=== PATIENT | male | born 1960 | race Caucasian/White ===

== ENCOUNTER 2022-11-21 22:37 | Inpatient (IN) ==
[2022-11-21] MEDS ORDERED: ONDANSETRON INJ 2 MG/ML 2 ML VIAL IV STA (22:48)
[2022-11-21] MEDS ORDERED: FAMOTIDINE 20MG IV PUSH 20 MG/5 ML SYR IV STA (22:48)
[2022-11-21] MEDS ORDERED: EPINEPHrine INJ 1 MG/ML AMP IM STA (22:48)
[2022-11-21] MEDS ORDERED: SODIUM CHLORIDE 0.9% 1,000 ML IV ONE (22:48)
[2022-11-21] MEDS ORDERED: methylPREDNISolone 125 MG/2 ML VIAL IV STA (22:50)
[2022-11-21] MEDS ORDERED: TRANEXAMIC ACID / 0.7% NACL 1,000 MG/100 ML BAG IV STA (22:52)
[2022-11-21] MEDS ORDERED: SODIUM CHLORIDE 0.9% 250 ML IV PRN (22:52)
[2022-11-21 23:10] LABS: Basophils # (auto) 0.06 K/uL (0.00-0.20); Basophils % (auto) 0.8 %; Eosinophils # (auto) 0.16 K/uL (0.00-0.50); Eosinophils % (auto) 2.1 %; Hematocrit (blood only) 46.8 % (42.0-52.0); Hemoglobin 16.2 g/dl (14.0-18.0); Immature Granulocytes # (auto) 0.02 K/uL (0.01-0.20); Immature Granulocytes % (auto) 0.3 %; Lymphocytes # (auto) 2.23 K/uL (1.20-3.40); Lymphocytes % (auto) 29.4 %; Mean Corpuscular Hemoglobin 32.1 pg (25.0-34.0); Mean Corpuscular Hgb Conc 34.6 g/dL (32.0-36.0); Mean Corpuscular Volume 92.7 fL (80.0-100.0); Mean Platelet Volume 8.9 fL (9.4-12.4); Monocytes # (auto) 0.53 K/uL (0.11-0.59); Neutrophils # (auto) 4.59 K/uL (1.40-6.50); Neutrophils % (auto) 60.4 %; Platelet Count 320 K/uL (130-400); RDW Coefficient of Variation 12.8 % (11.5-14.5); RDW Standard Deviation 43.8 fL (36.4-46.3); Red Blood Count 5.05 M/uL (4.70-6.10); White Blood Count 7.59 K/ul (4.8-10.8)
[2022-11-21 23:24] LABS: BUN Creatinine Ratio 18.5 (10-20); Creatinine Clr Calc Pharmacy 115.7 ml/min; Est GFR (Non-African American) 96.6 ml/min; Potassium 3.6 mmol/L (3.5-5.1)
[2022-11-21 23:40] LABS: Partial Thromboplastin Ratio 0.9; Partial Thromboplastin Time 26.5 Seconds (21.0-31.0); Prothrombin Time 10.6 Seconds (9.0-12.0)
--- NOTE | 2022-11-21 23:45 | Communication Note ---
Date of Service: November 21, 2022 Anesthesia Note: Called by ER staff physician to evaluate patient in ER who appeared to be having angioedema of the tongue/neck. Patient had several previous incidents of swelling of his tongue and neck but had always been unilateral in the past. Remote history of lisinopril use but currently on ARB. Patient is from out of town and is up for [employer] football game. He vaped today and noticed swelling of his neck and tongue along with voice changes. He took several Benadryl but symptoms did not improve so came to the ER. Physical exam showed a swollen tongue although was not protruding from his mouth. He was easily able to swallow his secretions and was sitting upright and conversant with me. He had definite voice changes and had swelling of his submandibular region b/l. MP 4, 3 with phonation. No wheezing heard on auscultation. Denied shortness of breath. SpO2 mid 90's on RA. Two IV's were started on patient and he received epinephrine, methylprednisolone, zofran, pepcid and TXA while I was with the patient. ER physician consented patient for FFP. ICU provider and I evaluated patient together. In my time with the patient, he stated he was feeling better as his tongue was less swollen and his voice quality improved. I did speak at length with patient's per his request to update her on his situation. At this point, patient is to be admitted to ICU and will be closely monitored overnight. FFP will also be given. Given that his tongue swelling is improving as is his voice quality combined with the fact that he does not have any SOB or wheezing, I do feel he does not need to be intubated at this time. If at any point the swelling progresses or he has any other symptoms such as dysphagia, SOB, worsening voice quality, etc, then I would have a very low threshold to intubate this patient using an awake technique with fiberoptic/glidescope. Patient is in agreement with plan as is the ICU provider. All questions were answered.
--- NOTE | 2022-11-22 00:05 | History & Physical Report ---
Date of Service November 21, 2022 Assessment & Plan (1) Angioedema: Plan: 62-year-old male with past medical significant for diabetes, hyperlipidemia, hypertension, bipolar disorder, history of angioedema in the past presents with swelling of the tongue and the throat. Angioedema After vaping History of angioedema in the past and he was stopped lisinopril Currently on losartan which will be held Received IM epinephrine, IV Solu-Medrol, IV Pepcid and getting TXA Seems improving Hemodynamically stable Monitoring in the ICU Hypertension We will hold Cozaar for now Monitor the blood pressure History of bipolar Depression anxiety Paxil, buspirone Tegretol and Valium Hyperlipidemia On Vytorin diabetes Diabetes We will hold home p.o. medications Insulin sliding scale We will follow blood sugars and HbA1c levels BPH Flomax DVT prophylax SCDs for now Disposition ICU Full code History of Present Illness Chief Complaint: Angioedema Primary Care Provider: NO PCP 62-year-old male with past medical significant for diabetes, hyperlipidemia, hypertension, bipolar disorder, history of angioedema in the past presents with swelling of the tongue and the throat. Patient is from [place] came to [place] for football match. He was offered lemon flavored nicotine vaping pipe. After he vapd went to his hotel room where he noticed swelling of his tongue and also with throat initially one side and soon both sides he called his friend took Benadryl and came to the ER. Received IV Solu-Medrol, IV Pepcid, IM epinephrine and TXA in the ER. Currently FFP is ordered. Says initially was just mumbling now able to speak, says seems to getting better. Denies any shortness of breath. No chest pain. No nausea vomiting. No headaches. No blurred visions. No runny nose or sore throat. No cough. No fevers. No abdominal pain. Normal bowel and bladder movements. Says he had similar epis ode 5 years ago which lasted for about 4 hours. At that time lisinopril was stopped and currently on losartan . Past medical history as mentioned above Past surgical history. Right knee meniscal repair Social history smokes occasional cannabis. Alcohol occasionally. Family history. Father and mother had diabetes, hypertension and hyperlipidemia. Mother had CHF. . Allergies Allergy/AdvReac Type Severity Reaction Status Date / Time lisinopril Allergy Severe Verified 11/22/22 00:26 Home Medications Medication Instructions Recorded Confirmed Type Glucotrol 15 mg PO ACHS 11/21/22 11/22/22 History Singulair 10 mg PO BID 11/21/22 11/21/22 History aspirin 325 mg tablet,delayed 325 mg PO DAILY 11/21/22 11/21/22 History release (Ecotrin) buspirone 30 mg tablet 30 mg PO BID 11/21/22 11/21/22 History carbamazepine 400 mg 400 mg PO BID 11/21/22 11/22/22 History tablet,extended release,12 hr (Tegretol XR) cetirizine 10 mg capsule (Zyrtec) 10 mg PO HS 11/21/22 11/21/22 History cholecalciferol (vitamin D3) 125 125 mcg PO DAILY 11/21/22 11/21/22 History mcg (5,000 unit) tablet (Vitamin D3) diazepam 5 mg tablet 10 mg PO HS PRN Anxiety 11/21/22 11/21/22 History ezetimibe-simvastatin 1,040 mg PO DAILY 11/21/22 11/21/22 History losartan 50 mg tablet (Cozaar) 50 mg PO DAILY 11/21/22 11/21/22 History paroxetine HCl 40 mg tablet (Paxil) 40 mg PO HS 11/21/22 11/21/22 History tamsulosin 0.4 mg capsule 0.4 mg PO HS 11/21/22 11/22/22 History Past Med/Surg History Medical History Anxiety and depression BPH (benign prostatic hyperplasia) Diabetes mellitus, type II HTN (hypertension) Mood disorder Family History Other Family history non-contributory Social History Smoking Status: Former smoker Tobacco Type: Cigarettes Second Hand Exposure: No; Do You Dip or Chew Tobacco: No; Tobacco Cessation Education Requested by Patient: No Hx Alcohol Use: Yes Alcohol type: beer Hx Substance Use: Yes Last Used Substance: Unknown Substance Use Type Other:: Pt smokes Marijuana for anxiety (legalized [place]) Preferred Language: Danish 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 Neck- supple, no JVD. Lungs- clear to auscultation no wheezing or crackles. Heart- regular rhythm; no murmur, no gallop. Abdomen- normal bowel sounds, soft, nontender, no distension Extremities- no pretibial edema, no erythema seen. Neuro- alert, oriented x 3; PERRL, no facial palsy; no dysarthria; non focal. Skin- warm & dry Results & Data Results & Data Vital Signs (Past 12 Hours) Vital Signs Temp Pulse Resp BP Pulse Ox O2 Del Method 11/21/22 23:31 83 22 153/87 H 95 Room Air 11/21/22 23:20 87 21 169/110 H 96 Room Air 11/21/22 23:15 88 23 97 Room Air 11/21/22 23:00 88 20 138/108 H 97 Room Air 11/21/22 23:12 98 Room Air 11/21/22 22:53 87 11/21/22 22:38 35.8 C L 91 H 20 166/91 H 95 Room Air Diagnostic Findings Laboratory Results WBC 7.59 K/ul (4.8-10.8) 11/21/22 22:47 RBC 5.05 M/uL (4.70-6.10) 11/21/22 22:47 Hgb 16.2 g/dl (14.0-18.0) 11/21/22 22:47 Hct 46.8 % (42.0-52.0) 11/21/22 22:47 MCV 92.7 fL (80.0-100.0) 11/21/22 22:47 MCH 32.1 pg (25.0-34.0) 11/21/22 22:47 MCHC 34.6 g/dL (32.0-36.0) 11/21/22 22:47 RDW Std Deviation 43.8 fL (36.4-46.3) 11/21/22 22:47 RDW Coeff of Raghu 12.8 % (11.5-14.5) 11/21/22 22:47 Plt Count 320 K/uL (130-400) 11/21/22 22:47 MPV 8.9 fL (9.4-12.4) L 11/21/22 22:47 Immature Gran % (Auto) 0.3 % 11/21/22 22:47 Neut % (Auto) 60.4 % 11/21/22 22:47 Lymph % (Auto) 29.4 % 11/21/22 22:47 Citrus % (Auto) 7.0 % 11/21/22 22:47 Eos % (Auto) 2.1 % 11/21/22 22:47 Baso % (Auto) 0.8 % 11/21/22 22:47 Neut # (Auto) 4.59 K/uL (1.40-6.50) 11/21/22 22:47 Lymph # (Auto) 2.23 K/uL (1.20-3.40) 11/21/22 22:47 Citrus # (Auto) 0.53 K/uL (0.11-0.59) 11/21/22 22:47 Eos # (Auto) 0.16 K/uL (0.00-0.50) 11/21/22 22:47 Baso # (Auto) 0.06 K/uL (0.00-0.20) 11/21/22 22:47 Immature Gran # (Auto) 0.02 K/uL (0.01-0.20) 11/21/22 22:47 PT 10.6 Seconds (9.0-12.0) 11/21/22 22:47 INR 1.0 (0.9-1.1) 11/21/22 22:47 APTT 26.5 Seconds (21.0-31.0) 11/21/22 22:47 PTT Ratio 0.9 11/21/22 22:47 Sodium 136 mmol/L (136-145) 11/21/22 22:47 Potassium 3.6 mmol/L (3.5-5.1) 11/21/22 22:47 Chloride 99 mmol/L (98-107) 11/21/22 22:47 Carbon Dioxide 27 mmol/L (21-32) 11/21/22 22:47 Anion Gap 10 (3-11) 11/21/22 22:47 BUN 15 mg/dl (6-23) 11/21/22 22:47 Creatinine 0.81 mg/dl (0.6-1.4) 11/21/22 22:47 Est Cr Clr Drug Dosing 115.7 ml/min 11/21/22 22:47 Est GFR ( Amer) 112.0 ml/min 11/21/22 22:47 Est GFR (Non-Af Amer) 96.6 ml/min 11/21/22 22:47 BUN/Creatinine Ratio 18.5 (10-20) 11/21/22 22:47 Glucose 170 mg/dl (70-99(Fasting)) H 11/21/22 22:47 Calcium 10.0 mg/dl (8.6-10.3) 11/21/22 22:47 Blood Type B Positive 11/21/22 22:57 Antibody Screen NEGATIVE 11/21/22 22:57 Code Status & VTE Plan VTE Prophylaxis Plan VTE Prophylaxis will be ordered: Yes
--- NOTE | 2022-11-22 00:06 | Critical Care Consultation ---
Date of Consultation November 22, 2022 Assessment & Plan (1) Angioedema: (2) HTN (hypertension): (3) Anxiety and depression: (4) Mood disorder: (5) BPH (benign prostatic hyperplasia): (6) Diabetes mellitus, type II: Plan Reason Critically Ill: 62 YOM presents for airway monitoring following episode of angioedema. Currently improving Neuro - HX mood disorder with anxiety and depression CAM ICU: Negative - Continue BuSpar, Tegretol, Paxil Cardiac - HTN - Hold Losartan- follow up with PCP - recommend discontinuation - Continue Zetia/simvastatin - Follow hemodynamic response Respiratory - Angioedema, Asthma - Angioedema in the setting of possibly vape induced however with a history of such secondary to lisinopril and currently on ARB - Symptoms are bilateral at this time, involving face /tongue/submandibular/cheeks- onset appears to have occurred within hour of vaping - is without skin involvement and is without wheeze or stridor - no other body system involved - Currently appears to be responding well to antihistamine mediated treatment - TXA given and pending arrival of FFP- will give 2 units FFP- repeat x1 unit if needed - Appreciate anesthesia evaluation and consultation- if airway becomes compromised anticipate awake fiberoptic management - Follow symptomatology- if rebound can re-dose FFP, consider epinephrine IM or infusion at 5mcg/kg/min and titrate to effect - will hold on labs as patient lives out of town - Albuterol for Asthma- nebulizers if not controlled with HFA- continue cetirizine/Singulair GI - No acute needs RENAL/LYTES - No acute needs - Hx BPH - No acute needs continue tamsulosin ENDO - HX DMII - ICU hyperglycemic protocol HEME - No acute needs ID - No concern for infectious etiology at this time LINES/IV ACCESS - PIV x2 Continue use of these lines DVT PROPHYLAXIS - SCDS, ambulation DISPO: ICU overnight and likely able to discharge in morning if no re-bound or worsening of the above I have personally spent 45 minutes of critical care time in the direct management of this patient. This is a life/limb threatening event. This includes time spent evaluating patient, direct bedside care, chart review, placing orders, interpretation of diagnostic studies, discussion with consultants, patient, and family members, as well as other required patient management activities. This time is exclusive of all separately billable procedures, and separate from and in addition to any other critical care service time. Thank you for allowing us to participate in the care of this patient. Please refer to my attending physician's documentation for any further recommendations. Supervising Physician Co-Signing Physician Notes I have personally evaluated and examined this patient. I agree with assessment and plan of Og FONTENOT. Evaluated at 1230, patient able to take p.o., mild swelling in the submandibular area patient reports significantly improved desires to go home. 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 Lives in [place] has traveling partner with him. Stable for discharge from my standpoint History of Present Illness Reason for Consultation: Angioedema Requesting Physician: Hilton Paniagua MD Attending Physician: Hilton Paniagua MD History of Present Illness 62 YOM that is from [place] with no medical records available for review. The patient is in the area today for the football game. Patient came to the EMD today for swelling of face and tongue that started around 1800 this evening. He reports that he did vape today at 1700 which he normally does not do. He took Benadryl 25mg Benadryl x4 prior to coming to the EMD. In the EMD the patient was noted with swollen tongue, eyes/cheeks, and submandibular region. He was without rash or hives as well as without stridor or wheeze. He was with thick garbled speech and with reported hoarse voice. He was managing his secretions. Anesthesia was at bedside as well evaluating airway. Patient reports that he has a history of angioedema that has occurred 3-4 other times and has always responded well to benadryl, steroid and H2 tejas. Normally his symptoms are unilateral and was noted previously while on Lisinopril. He is currently on Losartan. He does not remember ever having c1 inhibitor, c4 level or c1q esterase levels drawn and was told it was just related to his lisinopril. Within the hour following TXA, Epinepherin, Steroids, and Famotidine his symptoms have improved to his tongue, eyes, mouth, voice, and submandibular region and now is more localized to LEFT>RIGHT- which he states is normally just the left side. Patient will be admitted to ICU for continuation of monitoring and therapy. CODE: FULL Allergies Allergy/AdvReac Type Severity Reaction Status Date / Time lisinopril Allergy Severe Verified 11/22/22 00:26 Home Medications Medication Instructions Recorded Confirmed Type Glucotrol 15 mg PO ACHS 11/21/22 11/22/22 History Singulair 10 mg PO BID 11/21/22 11/21/22 History aspirin 325 mg tablet,delayed 325 mg PO DAILY 11/21/22 11/21/22 History release (Ecotrin) buspirone 30 mg tablet 30 mg PO BID 11/21/22 11/21/22 History carbamazepine 400 mg 400 mg PO BID 11/21/22 11/22/22 History tablet,extended release,12 hr (Tegretol XR) cetirizine 10 mg capsule (Zyrtec) 10 mg PO HS 11/21/22 11/21/22 History cholecalciferol (vitamin D3) 125 125 mcg PO DAILY 11/21/22 11/21/22 History mcg (5,000 unit) tablet (Vitamin D3) diazepam 5 mg tablet 10 mg PO HS PRN Anxiety 11/21/22 11/21/22 History ezetimibe-simvastatin 1,040 mg PO DAILY 11/21/22 11/21/22 History losartan 50 mg tablet (Cozaar) 50 mg PO DAILY 11/21/22 11/21/22 History paroxetine HCl 40 mg tablet (Paxil) 40 mg PO HS 11/21/22 11/21/22 History tamsulosin 0.4 mg capsule 0.4 mg PO HS 11/21/22 11/22/22 History cetirizine 10 mg tablet 10 mg PO BID #14 tabs 11/22/22 Rx nifedipine 60 mg tablet,extended 60 mg PO DAILY #30 tabs 11/22/22 Rx release prednisone 10 mg tablet See Taper PO DIRECTED #14 tabs 11/22/22 Rx Patient History Medical History Anxiety and depression BPH (benign prostatic hyperplasia) Diabetes mellitus, type II HTN (hypertension) Mood disorder Family History Other Family history non-contributory Social History Smoking Status: Former smoker Tobacco Type: Cigarettes Second Hand Exposure: No; Do You Dip or Chew Tobacco: No; Tobacco Cessation Education Requested by Patient: No Hx Alcohol Use: Yes Alcohol type: beer Hx Substance Use: Yes Last Used Substance: Unknown Substance Use Type Other:: Pt smokes Marijuana for anxiety ([place]ized [place]) Preferred Language: Vietnamese 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 Beliefs That Will Affect Care: None Current Living Situation: Spouse Other Information That Helps Us Care for You: No Feels Safe at Home: Yes Safety Concerns: Feels Safe At This Time Assistive Devices: None Review of Systems Review of Systems: REVIEW OF SYSTEMS: Constitutional: No fever, sweats or chills Eyes: (+) swelling of eyes, No diplopia, no worsening or blurred vision ENT: (+) lip swelling, tongue swelling, submandibular swelling, hoarse voice, normal hearing, no trouble swallowing Respiratory: No cough, sputum, dyspnea at rest or on exertion Cardiovascular: No chest pain, tightness or palpitations Abdomen: No pain, nausea, vomiting, diarrhea or constipation Musculoskeletal: No joint pain, calf pain, swelling Neurologic: No weakness, numbness/tingling, or balance problems Psychiatric: (+) anxiety or depression, mood disorder Skin: No rash or itch Physical Exam Physical Exam: PHYSICAL EXAM: General: awake, alert, no apparent distress Head: Normocephalic, atraumatic ENT: PERRLA, EOMI, Mallampati 4, swelling to eyes, cheeks, tongue, submandibular, no pharyngeal exudate, mucous membranes dry Neuro: AAO x 3, speech garbled secondary to tongue size, strength intact bilaterally 5/5, sensation intact and equal all extremities and dermatomes, no pronator drift Chest: equal rise and fall of the chest, no accessory muscle use, no heaves or thrills, Clear to auscultation, on room air, Cardiac: Regular rate and rhythm, telemetry reviewed, skin warm dry, cap refill <3 seconds, peripheral pulses +2 no JVD, no murmur, no JVD, no edema GI: NABS x 4 quadrants, soft, nontender to palpation, no rebound, guarding or tenderness : Spontaneously voiding, no pain, no CVA tenderness, Extremities: Normal inspection, no peripheral edema or erythema, calfs nontender to palpation Psych: Normal mood and affect Skin: no rash or erythema Results & Data Results & Data Vital Signs (Past 12 Hours) Vital Signs Temp Pulse Resp BP Pulse Ox O2 Del Method 11/21/22 23:31 83 22 153/87 H 95 Room Air 11/21/22 23:20 87 21 169/110 H 96 Room Air 11/21/22 23:15 88 23 97 Room Air 11/21/22 23:00 88 20 138/108 H 97 Room Air 11/21/22 23:12 98 Room Air 11/21/22 22:53 87 11/21/22 22:38 35.8 C L 91 H 20 166/91 H 95 Room Air Laboratory Results Abnormal lab results 11/21/22 11/21/22 Range/Units 22:47 22:47 MPV 8.9 L (9.4-12.4) fL Glucose 170 H (70-99(Fasting)) mg/dl Medications Administered Home Medications Glucotrol 15 mg PO ACHS 11/21/22 [History Confirmed 11/22/22] Singulair 10 mg PO BID 11/21/22 [History Confirmed 11/21/22] aspirin 325 mg tablet,delayed release (Ecotrin) 325 mg PO DAILY 11/21/22 [ History Confirmed 11/21/22] buspirone 30 mg tablet 30 mg PO BID 11/21/22 [History Confirmed 11/21/22] carbamazepine 400 mg tablet,extended release,12 hr (Tegretol XR) 400 mg PO BID 11/21/22 [History Confirmed 11/22/22] cetirizine 10 mg capsule (Zyrtec) 10 mg PO HS 11/21/22 [History Confirmed 11/21/22] cholecalciferol (vitamin D3) 125 mcg (5,000 unit) tablet (Vitamin D3) 125 mcg PO DAILY 11/21/22 [History Confirmed 11/21/22] diazepam 5 mg tablet 10 mg PO HS PRN Anxiety 11/21/22 [History Confirmed 11/21/22] ezetimibe-simvastatin 1,040 mg PO DAILY 11/21/22 [History Confirmed 11/21/22] losartan 50 mg tablet (Cozaar) 50 mg PO DAILY 11/21/22 [History Confirmed 11/21/22] paroxetine HCl 40 mg tablet (Paxil) 40 mg PO HS 11/21/22 [History Confirmed 11/21/22] tamsulosin 0.4 mg capsule 0.4 mg PO HS 11/21/22 [History Confirmed 11/22/22] Active Medications Sodium Chloride (Nss) 250 mls @ 15 mls/hr IV .[id number] PRN PRN Reason: For Transfusion Duration Stop: 11/22/22 08:52 Discontinued Medications Epinephrine HCl (Epinephrine Inj 1 Mg/Ml Amp) 0.3 mg IM NOW STA Stop: 11/21/22 22:49 Last Admin: 11/21/22 22:59 Dose: 0.3 mg Documented By: JOSE Sodium Chloride (Nss) 1,000 mls @ 999 mls/hr IV .Q1H1M ONE Stop: 11/21/22 23:48 Last Infusion: 11/22/22 00:00 Dose: 0 mls/hr Documented By: Admin: 11/21/22 22:59 Dose: 999 mls/hr Documented By: JOSE Famotidine (Pepcid 20mg Iv Push) 20 mg in 5 mls @ 2.5 mls/min IV NOW STA Stop: 11/21/22 22:49 Last Admin: 11/21/22 22:59 Dose: 2.5 mls/min Documented By: JOSE Tranexamic Acid (Tranexamic Acid / 0.7% Nacl) 1,000 mg in 100 mls @ 600 mls/hr IV NOW STA Stop: 11/21/22 23:01 Last Infusion: 11/21/22 23:14 Dose: 0 mls/hr Documented By: Admin: 11/21/22 23:03 Dose: 600 mls/hr Documented By: JOSE Methylprednisolone (Methylprednisolone 125 Mg/2 Ml Vial) 125 mg IV NOW STA Stop: 11/21/22 22:51 Last Admin: 11/21/22 22:59 Dose: 125 mg Documented By: JOSE Ondansetron HCl (Ondansetron Inj 2 Mg/Ml 2 Ml Vial) 4 mg IV NOW STA Stop: 11/21/22 22:49 Last Admin: 11/21/22 22:59 Dose: 4 mg Documented By: JOSE ECG Additional Comments: non on file Coding Level of Care Code 55885 CRITICAL CARE 1ST 30-74M Diagnoses Angioedema T78.3XXA HTN (hypertension) I10 Anxiety and depression F41.9; F32.A Mood disorder F39 BPH (benign prostatic hyperplasia) N40.0 Diabetes mellitus, type II E11.9
[2022-11-22] MEDS ORDERED: GLUCOSE 40% GEL 15 GM TUBE PO PRN (00:36)
[2022-11-22] MEDS ORDERED: GLUCOSE 10 TAB/TUBE PO PRN (00:36)
[2022-11-22] MEDS ORDERED: GLUCAGON FOR INJ 1 MG VIAL SQ PRN (00:36)
[2022-11-22] MEDS ORDERED: diphenhydrAMINE 50 MG/ML VIAL IV PRN (00:36)
[2022-11-22] MEDS ORDERED: CETIRIZINE HCL 10 MG TABLET PO SCH (00:36)
[2022-11-22] MEDS ORDERED: diazePAM 5 MG TABLET PO PRN (00:36)
[2022-11-22] MEDS ORDERED: CARBOHYDRATES FOR HYPOGLYCEMIA PO PRN (00:36)
[2022-11-22] MEDS ORDERED: SODIUM CHLORIDE 0.9% 1,000 ML IV SCH (00:36)
[2022-11-22] MEDS ORDERED: DEXTROSE 50% 50 ML SYRINGE IV PRN (00:36)
[2022-11-22] MEDS ORDERED: LACTATED RINGER'S 1,000 ML IV SCH (00:45)
[2022-11-22] MEDS ORDERED: ALBUTEROL 0.083% NEBU SOLN 3 ML VIAL NEB PRN (00:47)
[2022-11-22] MEDS ORDERED: ALBUTEROL HFA 8 GM INHALER INH PRN (00:47)
[2022-11-22] MEDS: INSULIN ASPART PER UNIT CHARGE SC SCH ×3 (01:29→12:49)
--- NOTE | 2022-11-22 02:24 | Emergency Department Note ---
History of Present Illness General Chief complaint: Allergic Reaction Stated complaint: ALLERGIC REACTION Time Seen by Provider: 11/21/22 22:45 History of Present Illness Provider complaint: Tongue swelling Onset (ago): minute(s) 45 Location: mouth Associated symptoms: no shortness of breath 62-year-old male presents emergency department for tongue swelling. Patient reports he "took a hit of his friends vape" at approximately 8:30 PM and then started having swelling of his throat and tongue 45 minutes ago. He states he is having difficulty speaking but no difficulty breathing. He reports no new foods. Patient states that something like this happened to him before and he was taken off of an CHRISTA inhibitor due to it. Patient is visiting from [place]. Patient states he took 4 Benadryl orally prior to arrival. Home Medications Medication Instructions Recorded Confirmed Type Glucotrol 15 mg PO ACHS 11/21/22 11/22/22 History Singulair 10 mg PO BID 11/21/22 11/21/22 History aspirin 325 mg tablet,delayed 325 mg PO DAILY 11/21/22 11/21/22 History release (Ecotrin) buspirone 30 mg tablet 30 mg PO BID 11/21/22 11/21/22 History carbamazepine 400 mg 400 mg PO BID 11/21/22 11/22/22 History tablet,extended release,12 hr (Tegretol XR) cetirizine 10 mg capsule (Zyrtec) 10 mg PO HS 11/21/22 11/21/22 History cholecalciferol (vitamin D3) 125 125 mcg PO DAILY 11/21/22 11/21/22 History mcg (5,000 unit) tablet (Vitamin D3) diazepam 5 mg tablet 10 mg PO HS PRN Anxiety 11/21/22 11/21/22 History ezetimibe-simvastatin 1,040 mg PO DAILY 11/21/22 11/21/22 History losartan 50 mg tablet (Cozaar) 50 mg PO DAILY 11/21/22 11/21/22 History paroxetine HCl 40 mg tablet (Paxil) 40 mg PO HS 11/21/22 11/21/22 History tamsulosin 0.4 mg capsule 0.4 mg PO HS 11/21/22 11/22/22 History Allergies Allergy/AdvReac Type Severity Reaction Status Date / Time lisinopril Allergy Severe Verified 11/22/22 00:26 Past Med/Surg History Medical History Anxiety and depression BPH (benign prostatic hyperplasia) Diabetes mellitus, type II HTN (hypertension) Mood disorder Family History Other Family history non-contributory Social History Smoking Status: Never smoker Preferred Language: Khmer Feels Safe at Home: Yes Physical Exam Vital Signs Vital Signs - 24 hr 11/21/22 22:38 11/21/22 22:53 11/21/22 23:12 Temperature 35.8 C L Temperature Source Temporal Artery Scan Pulse Rate 91 H 87 Pulse Rate from SpO2 Sensor Respiratory Rate 20 Respiratory Effort / Characteristics Grunting Respiratory Depth Normal Blood Pressure 166/91 H Blood Pressure Mean 116 Pulse Oximetry 95 98 Oxygen Delivery Method Room Air Room Air Sepsis Recent Fever Within 48 Hours No Sepsis New/Unexplained Change in Mental Status N/A Sepsis Action Taken by Nursing No Action Required 11/21/22 23:00 11/21/22 23:15 11/21/22 23:20 Temperature Temperature Source Pulse Rate 88 88 87 Pulse Rate from SpO2 Sensor 89 88 88 Respiratory Rate 20 23 21 Respiratory Effort / Characteristics Respiratory Depth Blood Pressure 138/108 H 169/110 H Blood Pressure Mean 118 129 Pulse Oximetry 97 97 96 Oxygen Delivery Method Room Air Room Air Room Air Sepsis Recent Fever Within 48 Hours Sepsis New/Unexplained Change in Mental Status Sepsis Action Taken by Nursing 11/21/22 23:31 11/21/22 23:45 Temperature Temperature Source Pulse Rate 83 89 Pulse Rate from SpO2 Sensor 83 88 Respiratory Rate 22 20 Respiratory Effort / Characteristics Respiratory Depth Blood Pressure 153/87 H Blood Pressure Mean 109 Pulse Oximetry 95 95 Oxygen Delivery Method Room Air Room Air Sepsis Recent Fever Within 48 Hours Sepsis New/Unexplained Change in Mental Status Sepsis Action Taken by Nursing Physical Exam HENT: Exam performed. - Head: Normocephalic and atraumatic. - Right Ear: External ear normal. No mastoid erythema - Left Ear: External ear normal. No mastoid erythema - Mouth/Throat: Swelling of the tongue and uvula. Mild swelling of the lower lip. Appearance is consistent with angioedema. EYES: Conjunctivae and EOM are normal. Pupils are equal, round, and reactive to light. Right eye exhibits no discharge. Left eye exhibits no discharge. No scleral icterus. NECK: Normal range of motion. Mild submental swelling and fullness. CV: Normal rate, regular rhythm, normal heart sounds and intact distal pulses. There is no peripheral edema. Palpable radial pulses bue. PULM/CHEST: Effort normal and breath sounds normal. No respiratory distress. No stridor. He has no wheezes. He has no rales. NEURO: Motor and sensation grossly intact. SKIN: Skin is warm and dry. He is not diaphoretic. PSYCH: He has a normal mood and affect. Behavior is normal. Judgment and thought content normal. Course Course 2245: The patient was evaluated in room C11. A complete history and physical exam was performed Cardiac monitoring: An order was placed for continuous cardiac monitoring. The monitor shows a rate of 80 with sinus rhythm interpreted by me Patient appears to have angioedema clinically. Unsure if it is truly angioedema or allergic reaction. Patient will be moved to the resuscitation bay. Patient ordered epinephrine 0.3 mg IM, Pepcid 20 mg IV, sign Medrol 125 mg IV and normal saline in case it is a true anaphylactic reaction. Higher likelihood for angioedema so patient is also ordered TXA IV as well as 2 units of FFP. Anesthesia will be consulted in the emergency department. 2250: Spoke with anesthesia Dr. Patel and he states he will be down to evaluate the patient. 2256: Anesthesia was at bedside evaluating the patient. 2315: Patient states he feels like his tongue swelling is going down. [facility] 0000: Vital signs stable. Patient states that he feels like his tongue swelling is going down. Objectively his tongue swelling does appear to be going down and there appear to be more ridges visible in his tongue. TXA epinephrine Solu- Medrol Pepcid and IV fluids have been given to the patient. FFP is ordered for the patient. Anesthesia and ICU states that they will observe the patient in the ICU but hold off on intubation at this time as patient is improving. Administered Medications Cetirizine HCl (Cetirizine Hcl 10 Mg Tablet) 10 mg PO HS RONNIE Stop: 12/22/22 00:35 Last Admin: 11/22/22 01:07 Dose: 10 mg Documented By: MATTI Insulin Aspart (Insulin Aspart Per Unit Charge) 0 units SC ACHS RONNIE Stop: 12/22/22 00:35 Last Admin: 11/22/22 01:29 Dose: 2 units Documented By: MATTI Co-signed By: CF Discontinued Medications Epinephrine HCl (Epinephrine Inj 1 Mg/Ml Amp) 0.3 mg IM NOW STA Stop: 11/21/22 22:49 Last Admin: 11/21/22 22:59 Dose: 0.3 mg Documented By: JOSE Sodium Chloride (Nss) 1,000 mls @ 999 mls/hr IV .Q1H1M ONE Stop: 11/21/22 23:48 Last Infusion: 11/22/22 00:00 Dose: 0 mls/hr Documented By: Admin: 11/21/22 22:59 Dose: 999 mls/hr Documented By: JOSE Famotidine (Pepcid 20mg Iv Push) 20 mg in 5 mls @ 2.5 mls/min IV NOW STA Stop: 11/21/22 22:49 Last Admin: 11/21/22 22:59 Dose: 2.5 mls/min Documented By: JOSE Tranexamic Acid (Tranexamic Acid / 0.7% Nacl) 1,000 mg in 100 mls @ 600 mls/hr IV NOW STA Stop: 11/21/22 23:01 Last Infusion: 11/21/22 23:14 Dose: 0 mls/hr Documented By: Admin: 11/21/22 23:03 Dose: 600 mls/hr Documented By: JOSE Methylprednisolone (Methylprednisolone 125 Mg/2 Ml Vial) 125 mg IV NOW STA Stop: 11/21/22 22:51 Last Admin: 11/21/22 22:59 Dose: 125 mg Documented By: JOSE Ondansetron HCl (Ondansetron Inj 2 Mg/Ml 2 Ml Vial) 4 mg IV NOW STA Stop: 11/21/22 22:49 Last Admin: 11/21/22 22:59 Dose: 4 mg Documented By: JOSE Critical Care Time Critical Care Time: Yes Total Critical Care Time: 76 I have personally spent greater than 76 minutes of critical care time in the direct management of this patient. This includes bedside care, interpretation of diagnostic studies, and testing, discussion with consultants, patient, and family members, and other required patient management activities. This 76 minutes is in excess of all separately billable procedures. Medical Decision Making Laboratory Data Attestation: I reviewed the patient's lab results. 11/21/22 22:47 11/21/22 22:47 Lab Results 11/21/22 11/21/22 11/21/22 Range/Units 22:47 22:47 22:47 WBC 7.59 (4.8-10.8) K/ul RBC 5.05 (4.70-6.10) M/uL Hgb 16.2 (14.0-18.0) g/dl Hct 46.8 (42.0-52.0) % MCV 92.7 (80.0-100.0) fL MCH 32.1 (25.0-34.0) pg MCHC 34.6 (32.0-36.0) g/dL RDW Std Deviation 43.8 (36.4-46.3) fL RDW Coeff of Raghu 12.8 (11.5-14.5) % Plt Count 320 (130-400) K/uL MPV 8.9 L (9.4-12.4) fL Immature Gran % (Auto) 0.3 % Neut % (Auto) 60.4 % Lymph % (Auto) 29.4 % [place] % (Auto) 7.0 % Eos % (Auto) 2.1 % Baso % (Auto) 0.8 % Neut # (Auto) 4.59 (1.40-6.50) K/uL Lymph # (Auto) 2.23 (1.20-3.40) K/uL [place] # (Auto) 0.53 (0.11-0.59) K/uL Eos # (Auto) 0.16 (0.00-0.50) K/uL Baso # (Auto) 0.06 (0.00-0.20) K/uL Immature Gran # (Auto) 0.02 (0.01-0.20) K/uL PT 10.6 (9.0-12.0) Seconds INR 1.0 (0.9-1.1) APTT 26.5 (21.0-31.0) Seconds PTT Ratio 0.9 Sodium 136 (136-145) mmol/L Potassium 3.6 (3.5-5.1) mmol/L Chloride 99 (98-107) mmol/L Carbon Dioxide 27 (21-32) mmol/L Anion Gap 10 (3-11) BUN 15 (6-23) mg/dl Creatinine 0.81 (0.6-1.4) mg/dl Est Cr Clr Drug Dosing 115.7 ml/min Est GFR ( Amer) 112.0 ml/min Est GFR (Non-Af Amer) 96.6 ml/min BUN/Creatinine Ratio 18.5 (10-20) Glucose 170 H (70-99(Fasting)) mg/dl Calcium 10.0 (8.6-10.3) mg/dl Blood Type Antibody Screen 11/21/22 Range/Units 22:57 WBC (4.8-10.8) K/ul RBC (4.70-6.10) M/uL Hgb (14.0-18.0) g/dl Hct (42.0-52.0) % MCV (80.0-100.0) fL MCH (25.0-34.0) pg MCHC (32.0-36.0) g/dL RDW Std Deviation (36.4-46.3) fL RDW Coeff of Raghu (11.5-14.5) % Plt Count (130-400) K/uL MPV (9.4-12.4) fL Immature Gran % (Auto) % Neut % (Auto) % Lymph % (Auto) % [place] % (Auto) % Eos % (Auto) % Baso % (Auto) % Neut # (Auto) (1.40-6.50) K/uL Lymph # (Auto) (1.20-3.40) K/uL [place] # (Auto) (0.11-0.59) K/uL Eos # (Auto) (0.00-0.50) K/uL Baso # (Auto) (0.00-0.20) K/uL Immature Gran # (Auto) (0.01-0.20) K/uL PT (9.0-12.0) Seconds INR (0.9-1.1) APTT (21.0-31.0) Seconds PTT Ratio Sodium (136-145) mmol/L Potassium (3.5-5.1) mmol/L Chloride (98-107) mmol/L Carbon Dioxide (21-32) mmol/L Anion Gap (3-11) BUN (6-23) mg/dl Creatinine (0.6-1.4) mg/dl Est Cr Clr Drug Dosing ml/min Est GFR ( Amer) ml/min Est GFR (Non-Af Amer) ml/min BUN/Creatinine Ratio (10-20) Glucose (70-99(Fasting)) mg/dl Calcium (8.6-10.3) mg/dl Blood Type B Positive Antibody Screen NEGATIVE MDM Narrative 2245: The patient was evaluated in room C11. A complete history and physical exam was performed Cardiac monitoring: An order was placed for continuous cardiac monitoring. The monitor shows a rate of 80 with sinus rhythm interpreted by me Patient appears to have angioedema clinically. Unsure if it is truly angioedema or allergic reaction. Patient will be moved to the resuscitation bay. Patient ordered epinephrine 0.3 mg IM, Pepcid 20 mg IV, sign Medrol 125 mg IV and normal saline in case it is a true anaphylactic reaction. Higher likelihood for angioedema so patient is also ordered TXA IV as well as 2 units of FFP. Anesthesia will be consulted in the emergency department. 2250: Spoke with anesthesia Dr. Patel and he states he will be down to evaluate the patient. 2256: Anesthesia was at bedside evaluating the patient. 2315: Patient states he feels like his tongue swelling is going down. [facility] 0000: Vital signs stable. Patient states that he feels like his tongue swelling is going down. Objectively his tongue swelling does appear to be going down and there appear to be more ridges visible in his tongue. TXA epinephrine Solu- Medrol Pepcid and IV fluids have been given to the patient. FFP is ordered for the patient. Anesthesia and ICU states that they will observe the patient in the ICU but hold off on intubation at this time as patient is improving. Impression & Plan Angioedema Discharge Plan Visit Data Chief Complaint: Allergic Reaction Stated Complaint: ALLERGIC REACTION ED Provider: Obdulio Cisse Discharge Problem: Angioedema Patient Disposition: Admitted As Inpatient Discharge Instructions Interventions: ED Discharge Assessment Last Done: 11/22/22 00:18
[2022-11-22 05:00] LABS: Basophils # (auto) 0.01 K/uL (0.00-0.20); Basophils % (auto) 0.1 %; Eosinophils # (auto) 0.01 K/uL (0.00-0.50); Eosinophils % (auto) 0.1 %; Hematocrit (blood only) 41.3 % (42.0-52.0); Hemoglobin 14.2 g/dl (14.0-18.0); Immature Granulocytes # (auto) 0.05 K/uL (0.01-0.20); Immature Granulocytes % (auto) 0.5 %; Lymphocytes % (auto) 7.7 %; Mean Corpuscular Hemoglobin 31.6 pg (25.0-34.0); Mean Corpuscular Hgb Conc 34.4 g/dL (32.0-36.0); Mean Corpuscular Volume 91.8 fL (80.0-100.0); Mean Platelet Volume 9.1 fL (9.4-12.4); Monocytes # (auto) 0.27 K/uL (0.11-0.59); Neutrophils # (auto) 8.09 K/uL (1.40-6.50); Neutrophils % (auto) 88.6 %; Platelet Count 305 K/uL (130-400); RDW Coefficient of Variation 12.8 % (11.5-14.5); RDW Standard Deviation 42.7 fL (36.4-46.3); White Blood Count 9.13 K/ul (4.8-10.8)
[2022-11-22 05:16] LABS: BUN Creatinine Ratio 20.3 (10-20); Calcium 9.2 mg/dl (8.6-10.3); Creatinine Clr Calc Pharmacy 126.5 ml/min; Est GFR (African American) 116.2 ml/min; Est GFR (Non-African American) 100.3 ml/min; Potassium 4.1 mmol/L (3.5-5.1)
[2022-11-22] MEDS ORDERED: ICU Protocol for HYPERglycemia SCH (07:30)
[2022-11-22] MEDS ORDERED: ASPIRIN 325 MG ECTAB PO SCH (09:00)
[2022-11-22] MEDS ORDERED: predniSONE 20 MG TAB PO SCH (09:00)
[2022-11-22] MEDS ORDERED: CHOLECALCIFEROL 5,000 UNITS 125 MCG TAB PO SCH (09:00)
[2022-11-22] MEDS ORDERED: SIMVASTATIN 40 MG TAB PO SCH (09:00)
[2022-11-22] MEDS ORDERED: EZETIMIBE 10 MG TAB PO SCH (09:00)
[2022-11-22] MEDS ORDERED: FAMOTIDINE 20 MG in SYRINGE 3 ML IV SCH (09:00)
[2022-11-22] MEDS ORDERED: busPIRone 15 MG TAB PO SCH (09:00)
--- NOTE | 2022-11-22 12:09 | Discharge Summary ---
Date of Service November 22, 2022 Admission HPI Per Admitting Provider 62-year-old male with past medical significant for diabetes, hyperlipidemia, hypertension, bipolar disorder, history of angioedema in the past presents with swelling of the tongue and the throat. Patient is from [place] came to [place] for football match. He was offered lemon flavored nicotine vaping pipe. After he vapd went to his hotel room where he noticed swelling of his tongue and also with throat initially one side and soon both sides he called his friend took Benadryl and came to the ER. Received IV Solu-Medrol, IV Pepcid, IM epinephrine and TXA in the ER. Currently FFP is ordered. Says initially was just mumbling now able to speak, says seems to getting better. Denies any shortness of breath. No chest pain. No nausea vomiting. No headaches. No blurred visions. No runny nose or sore throat. No cough. No fevers. No abdominal pain. Normal bowel and bladder movements. Says he had similar episode 5 years ago which lasted for about 4 hours. At that time lisinopril was stopped and currently on losartan . Past medical history as mentioned above Past surgical history. Right knee meniscal repair Social history smokes occasional cannabis. Alcohol occasionally. Family history. Father and mother had diabetes, hypertension and hyperlipidemia. Mother had CHF. . Admission Exam Per Admitting Provider General- Not in distress Head- atraumatic Eyes- PERRL, EOMI, anicteric ENT- Swollen tounge and throat. Neck- supple, no JVD. Lungs- clear to auscultation no wheezing or crackles. Heart- regular rhythm; no murmur, no gallop. Abdomen- normal bowel sounds, soft, nontender, no distension Extremities- no pretibial edema, no erythema seen. Neuro- alert, oriented x 3; PERRL, no facial palsy; no dysarthria; non focal. Skin- warm & dry Principal Diagnosis Angioedema Discharge Exam Constitutional: Awake alert oriented x3; no stridor or additional sounds. Slight swelling present on neck Respiratory: Bilateral vesicular breath sound. Cardiovascular: RRR, no murmur, no edema Vessels: no JVD or carotid bruit Chest: normal inspection of chest Abdomen: normal bowel sounds, soft, nontender, no hepatosplenomegaly Musculoskeletal: no cyanosis or clubbing, extremities motor strength 5/5 Skin: no rashes, warm and dry normal turgor Neurologic: PERRL, EOMI, accommodation nl, no face palsy, no dysarthria CN's II- XI intact bilaterally and moves all extremities Psychiatric: A+Ox3, euthymic affect Discharge Data Allergies Allergy/AdvReac Type Severity Reaction Status Date / Time lisinopril Allergy Severe Verified 11/22/22 00:26 Consultations 11/21/22 23:10 ED Decision to Admit Stat 11/22/22 00:36 Consult Salt Grinder Routine Hospital Course (1) Angioedema: 62-year-old male with past medical significant for diabetes, hyperlipidemia, hypertension, bipolar disorder, history of angioedema in the past presents with swelling of the tongue and the throat. The symptoms arise after 1 hour of vaping In the ED, patient was given TXA, IM epinephrine and Solu-Medrol. Patient was admitted to ICU for observation for possible airway compromise. Overnight, patient reports improvement in the swelling. He did not have any trouble with eating; no stridor or wheeze heard. Discussed with the patient about further steps; recommended 1 more night OBSERVATION inpatient before discharge. However, patient reported that he is feeling much better and wanted to go back to [place] today. Discussed with ICU; patient is stable for discharge. Patient was prescribed a tapering dose of prednisone and cetirizine for 1 week. Discussed with patient regarding any follow-up; important for him to follow-up with his PCP and obtain allergy referral. Losartan was discontinued and nifedipine was ordered for high blood pressure Please note the above document was generated using voice recognition software. It may contain grammatical, syntax or spelling errors. Any formal questions or concerns about the content, text or information contained within the body of this dictation should be directly addressed to the provider for clarification Total Time Total Time Spent Total Time Spent (In Minutes): 50 Total Time Includes: Examination of the Patient, Discharge Planning, Medication Reconciliation, Communication With Other Providers and Other Discharge Plan Discharge Items Patient Disposition: Home - Self-Care Reason For Visit: ANGIODEMA Discharge Diagnosis: Angioedema Activity: Resume your previous activity Non-emergency contact: Primary Care Provider Call non-emergency contact if: you have any medication questions and your symptoms worsen Follow-up/Referrals: PCP,NO [Primary Care Provider] - Diet: Regular Addtl Attending Provider Instructions: You were admitted to the hospital due to angioedema. You are prescribed following medication: 1) prednisone 10 mg tablets. Take 40 mg for 2 days, 20 mg for 2 days then 10 mg for 2 days 2) cetirizine( Zyrtec) 10 mg tablets twice a day for 1 week Losartan is stopped and you are started on nifedipine 60 mg once a day for your blood pressure. Please follow-up with your primary care doctor after you go back to [place]. Please obtain allergy and immunology referral to further evaluate angioedema. Pending Studies at Discharge: No Stand-Alone Forms: My [facility], Smoking Cessation Medications and DC Order Prescriptions: New prednisone 10 mg tablet See Taper PO DIRECTED Qty: 14 0RF Taper: Taper, Blank 40 mg DAILY for 2 Days 20 mg DAILY for 2 Days 10 mg DAILY for 2 Days Rx Instructions: see taper instructions nifedipine 60 mg tablet extended release 60 mg PO DAILY Qty: 30 0RF cetirizine 10 mg tablet 10 mg PO BID Qty: 14 0RF Continued carbamazepine [Tegretol XR] 400 mg Tablet Extended Release 12 Hr 400 mg PO BID aspirin [Ecotrin] 325 mg Tablet,Delayed Release (Dr/Ec) 325 mg PO DAILY tamsulosin 0.4 mg capsule 0.4 mg PO HS buspirone 30 mg Tablet 30 mg PO BID paroxetine HCl [Paxil] 40 mg Tablet 40 mg PO HS diazepam 5 mg tablet 10 mg PO HS PRN (Reason: Anxiety) Rx Instructions: 10mg @ HS, 5mg PRN up to 2x daily cholecalciferol (vitamin D3) [Vitamin D3] 125 mcg (5,000 unit) Tablet 125 mcg PO DAILY Zyrtec 10 mg Capsule 10 mg PO HS Glucotrol 15 mg PO ACHS Singulair 10 mg PO BID ezetimibe-simvastatin 1,040 mg PO DAILY Discontinued losartan [Cozaar] 50 mg Tablet 50 mg PO DAILY Discharge Orders: Discharge Order (Routine); Ordered 11/22/22 Ordered By: Ar Ochoa Admission Data Admit Date/Time: 11/21/22 23:53 Attending Provider: Ar Ochoa Admit Provider: Hilton Paniagua Primary Care Provider: PCP,NO Other Providers: Hilton Paniagua ; Faraz Ceja Other Interventions: Discharge Summary Assessment (RN) Last Done: 11/22/22 12:37
[2022-11-22] MEDS ORDERED: predniSONE 20 MG TAB PO STA (12:48)
[2022-11-22] MEDS ORDERED: CETIRIZINE HCL 10 MG TABLET PO ONE (12:48)
[2022-11-22] MEDS ORDERED: TAMSULOSIN HCL 0.4 MG CAP PO SCH (21:00)
[2022-11-22] MEDS ORDERED: PARoxetine HCL 20 MG TAB PO SCH (21:00)
== END 2022-11-22 13:48 | disposition home or self-care (01) | DRG 916 ==
LOC: ED 22:37 → 1E 23:53